=== PATIENT | male | born 1985 | race Asian ===

== ENCOUNTER 2020-11-13 16:19 | Emergency (ER) | payer MEDICAID, OTHER ==
[2020-11-13 17:11] LABS: BASOPHILS # (AUTO) 0.1 10^3/uL (0.0-0.1); BASOPHILS % (AUTO) 0.5 %; EOSINOPHILS # (AUTO) 0.1 10^3/uL (0.0-0.7); EOSINOPHILS % (AUTO) 0.5 %; HCT - HEMATOCRIT 48.1 % (42.0-52.0); HGB - HEMOGLOBIN 16.7 g/dL (14.0-18.0); LYMPHOCYTES # (AUTO) 1.1 10^3/uL (1.5-3.5); LYMPHOCYTES % (AUTO) 7.5 %; MEAN CORPUSCULAR HEMOGLOBIN 32.3 pg (27.0-31.0); MEAN CORPUSCULAR HGB CONC 34.7 g/dL (32.0-36.0); MEAN PLATELET VOLUME 10.4 fL (7.4-11.4); MONOCYTES # (AUTO) 0.9 10^3/uL (0.0-1.0); MONOCYTES % (AUTO) 6.1 %; NEUTROPHILS # (AUTO) 12.8 10^3/uL (1.5-6.6); PLT - PLATELET COUNT 250 10^3/uL (130-450); RED BLOOD COUNT 5.17 10^6/uL (4.70-6.10); RED CELL DISTRIBUTION WIDTH 12.1 % (12.0-15.0)
[2020-11-13 17:29] LABS: ACETAMINOPHEN < 10 ug/mL (10-30); ALBUMIN 4.7 g/dL (3.2-5.5); ALBUMIN/GLOBULIN RATIO 1.1 (1.0-2.2); ALKALINE PHOSPHATASE 75 IU/L (42-121); ALT ALANINE AMINOTRANSFERASE 25 IU/L (10-60); AST ASPARTATE AMINOTRANSFERASE 25 IU/L (10-42); BILIRUBIN,TOTAL 0.5 mg/dL (0.2-1.0); BUN - BLOOD UREA NITROGEN 10 mg/dL (6-20); CALCIUM 9.9 mg/dL (8.5-10.3); CARBON DIOXIDE - CO2 24 mmol/L (21-32); CHLORIDE 98 mmol/L (101-111); ETOH - ETHANOL < 5.0 mg/dL; GFR - MDRD 85 (>89); GLUCOSE 132 mg/dL (70-100); LIPASE 24 U/L (22-51); POTASSIUM 3.7 mmol/L (3.5-5.0); SALICYLATE < 6.0 mg/dL; SODIUM 136 mmol/L (135-145); TOTAL PROTEIN 8.8 g/dL (6.7-8.2)
--- NOTE | 2020-11-13 19:43 | ED Physician Documentation ---
PD HPI MHE - Stated complaint Stated Complaint: MHE - Chief complaint Chief Complaint: MHE - History obtained from History obtained from: Patient - History of Present Illness Primary symptom: Depression, Anxiety Timing - onset: How many days ago (4) Contributing factors: Substance abuse - ETOH, Other (pet was put down 4 daysa ago) Similar symptoms before: Has not had sx before Recently seen: Not recently seen - Additional information Additional information: 35-year-old male with history of alcohol abuse has had a recent tragic event where his materials buyer animal had to be put down. This happened about 4 days ago and the patient was emotionally upset by this and he had been doing some drinking. He indicates that he had 2 beers today otherwise has had none and he was concerned when he tried to check his blood pressure and it was markedly elevated as well as his pulse. He feels anxious and irritable. When his mother found his blood pressure this high she insisted to come to the emergency department. Review of Systems Constitutional: denies: Fever Eyes: denies: Decreased vision Ears: denies: Ear pain Nose: denies: Congestion Throat: denies: Sore throat Cardiac: denies: Chest pain / pressure, Palpitations Respiratory: denies: Dyspnea, Cough GI: denies: Abdominal Pain : denies: Dysuria, Frequency Skin: denies: Rash Musculoskeletal: denies: Neck pain, Back pain, Extremity pain Neurologic: denies: Generalized weakness, Focal weakness, Numbness, Difficulty speaking, Headache, Head injury Psychiatric: reports: Depressed, Anxiety, Insomnia PD PAST MEDICAL HISTORY - Past Medical History Past Medical History: Yes Psych: Anxiety, Panic attacks - Past Surgical History Past Surgical History: Yes HEENT: Tonsil/Adenoidectomy - Present Medications Home Medications: Ambulatory Orders Medication Instructions Recorded Confirmed LORazepam [Ativan] 1 - 2 mg PO Q6HR PRN #20 tablet 11/13/20 - Allergies Allergies/Adverse Reactions: Allergies Allergy/AdvReac Type Severity Reaction Status Date / Time amoxicillin Allergy Hives Verified 11/13/20 16:33 - Social History Does the pt smoke?: Yes Smoking Status: Current every day smoker Does the pt drink ETOH?: Yes Does the pt have substance abuse?: No - Immunizations Immunizations are current?: No Immunizations: TDAP >10years/unknown - POLST Patient has POLST: No PD ED PE NORMAL - Vitals Vital signs reviewed: Yes (tachy and hypertensive marked. ) - General General: Alert and oriented X 3, No acute distress, Well developed/nourished - HEENT HEENT: Atraumatic, PERRL, EOMI - Neck Neck: Supple, no meningeal sign, No bony TTP - Cardiac Cardiac: RRR, No murmur - Respiratory Respiratory: No respiratory distress, Clear bilaterally - Abdomen Abdomen: Soft, Non tender - Back Back: No CVA TTP, No spinal TTP - Derm Derm: Normal color, Warm and dry, No rash - Extremities Extremities: No deformity, No edema - Neuro Neuro: Alert and oriented X 3, apn 2-12 intact, No motor deficit, No sensory deficit, Normal speech Eye Opening: Spontaneous Motor: Obeys Commands Verbal: Oriented GCS Score: 15 - Psych Psych: Normal mood, Normal affect Results - Vitals Vitals: Vital Signs - 24 hr 11/13/20 11/13/20 16:29 19:59 Temperature 36.0 C L 36.5 C Heart Rate 114 H 110 H Respiratory 20 18 Rate Blood Pressure 193/121 H 155/100 H O2 Saturation 99 97 Oxygen O2 Source Room air - Labs Labs: Laboratory Tests 11/13/20 11/13/20 11/13/20 17:01 17:01 17:01 WBC 15.0 H RBC 5.17 Hgb 16.7 Hct 48.1 MCV 93.0 MCH 32.3 H MCHC 34.7 RDW 12.1 Plt Count 250 MPV 10.4 Neut # (Auto) 12.8 H Lymph # (Auto) 1.1 L [place] # (Auto) 0.9 Eos # (Auto) 0.1 Baso # (Auto) 0.1 Absolute Nucleated RBC 0.00 Nucleated RBC % 0.0 Sodium 136 Potassium 3.7 Chloride 98 L Carbon Dioxide 24 Anion Gap 14.0 H BUN 10 Creatinine 1.0 Estimated GFR (MDRD) 85 L Glucose 132 H Calcium 9.9 Total Bilirubin 0.5 AST 25 ALT 25 Alkaline Phosphatase 75 Total Protein 8.8 H Albumin 4.7 Globulin 4.1 Albumin/Globulin Ratio 1.1 Lipase 24 TSH 2.11 Salicylates < 6.0 Acetaminophen < 10 L Ethyl Alcohol < 5.0 PD MEDICAL DECISION MAKING - ED course Complexity details: reviewed old records, reviewed results, re-evaluated patient, considered differential, d/w patient ED course: Previously well 35-year-old male with history of alcohol abuse has been grieving over the loss of a materials buyer animal and this seems to have hit him pretty hard. He is quite emotional here in the emergency department he does not feel suicidal or homicidal but he is having some difficulty with feeling irritated and having an elevated blood pressure and pulse. This is likely due to alcohol withdrawal and the patient is offered Ativan. Departure - Departure Disposition: 01 Home, Self Care Clinical Impression: Grieving Alcohol withdrawal syndrome Qualifiers: Complication of substance-induced condition: uncomplicated Qualified Code(s): F10.230 - Alcohol dependence with withdrawal, uncomplicated Condition: Stable Instructions: ED Withdrawal Alcohol, ED Stress React Follow-Up: [facility] [Provider Group] Prescriptions: LORazepam [Ativan] 1 - 2 mg PO Q6HR PRN #20 tablet PRN Reason: withdrawal symtoms Comments: Today it appears your symptoms of elevated blood pressure and rapid heart rate are related to alcohol withdrawal. The medication we have provided the Ativan should help with these symptoms. They will also help with symptoms related to your grieving. That should be easier for you to sleep. You may need more Ativ an even this evening. Discharge Date/Time: 11/13/20 20:12
[2020-11-13 20:00] VITALS: BP 155/100
[2020-11-13] MEDS ORDERED: LORazepam 1 MG TABLET PO STA (20:03)
== END 2020-11-13 20:12 | disposition home or self-care (01) ==
LOC: ED 16:19
DX: F43.21 Adjustment disorder with depressed mood (principal); F10.230 Alcohol dependence with withdrawal, uncomplicated; F17.200 Nicotine dependence, unspecified, uncomplicated
CPT/HCPCS: 36415; 80053; 80307; 80320; 80329; 83690; 84443; 85025; 99283; J8499

== ENCOUNTER 2021-02-27 14:44 | Emergency (ER) | payer MEDICAID ==
[2021-02-27 14:59] VITALS: BP 173/121
--- NOTE | 2021-02-27 15:29 | ED Physician Documentation ---
History of Present Illness - Stated complaint Stated Complaint: ALCOHOL WITHDRAWLS - Chief complaint Chief Complaint: MHE - History obtained from History obtained from: Patient - Additonal information Additional information: 35-year-old gentleman with would like help with alcohol withdrawal. He was seen here in October for similar, got some lorazepam was actually sober for about 2 months. Started up with accelerating use and now would like to quit again and is worried about withdrawal symptoms. No SI or HI Review of Systems Constitutional: reports: Sweats Ears: reports: Reviewed and negative Nose: reports: Reviewed and negative Cardiac: reports: Reviewed and negative PD PAST MEDICAL HISTORY - Past Medical History Psych: Anxiety, Panic attacks - Past Surgical History Past Surgical History: Yes HEENT: Tonsil/Adenoidectomy - Present Medications Home Medications: Ambulatory Orders Medication Instructions Recorded Confirmed LORazepam [Ativan] 1 - 2 mg PO Q6HR PRN #20 tablet 11/13/20 LORazepam [Ativan] 1 mg PO TID PRN #12 tablet 02/27/21 - Allergies Allergies/Adverse Reactions: Allergies Allergy/AdvReac Type Severity Reaction Status Date / Time amoxicillin Allergy Hives Verified 02/27/21 14:59 - Social History Does the pt smoke?: Yes Smoking Status: Current every day smoker Does the pt drink ETOH?: Yes Does the pt have substance abuse?: No - Immunizations Immunizations are current?: No Immunizations: TDAP >10years/unknown - POLST Patient has POLST: No PD ED PE NORMAL - Vitals Vital signs reviewed: Yes - General General: Alert and oriented X 3, No acute distress - HEENT HEENT: PERRL, EOMI - Neck Neck: Supple, no meningeal sign, No bony TTP - Neuro Neuro: Alert and oriented X 3, Normal speech - Psych Psych: Normal mood, Normal affect Results - Vitals Vitals: Vital Signs - 24 hr 02/27/21 14:52 Temperature 36.9 C Heart Rate 101 H Respiratory 15 Rate Blood Pressure 173/121 H O2 Saturation 98 Oxygen O2 Source Room air PD MEDICAL DECISION MAKING - ED course ED course: Declined to talk to the 7th grade social studies teacher and did not want to entertain inpatient detox. Departure - Departure Disposition: 01 Home, Self Care Clinical Impression: Alcohol withdrawal syndrome Qualifiers: Complication of substance-induced condition: uncomplicated Qualified Code(s): F10.230 - Alcohol dependence with withdrawal, uncomplicated Condition: Good Record reviewed to determine appropriate education?: Yes Instructions: ED Withdrawal Alcohol Prescriptions: LORazepam [Ativan] 1 mg PO TID PRN #12 tablet PRN Reason: Anxiety Comments: Prescription sent electronically to [facility]. Return for new or worsening symptoms. Follow-up with your doctor for further evaluation and treatment.
== END 2021-02-27 16:29 | disposition home or self-care (01) ==
LOC: ED 14:44
DX: F10.230 Alcohol dependence with withdrawal, uncomplicated (principal); F17.200 Nicotine dependence, unspecified, uncomplicated
CPT/HCPCS: 99282; 99283

== ENCOUNTER 2021-05-15 14:47 | Emergency (ER) | payer MEDICAID ==
[2021-05-15 14:56] VITALS: BP 154/102
--- NOTE | 2021-05-15 15:05 | ED Physician Documentation ---
History of Present Illness - Stated complaint Stated Complaint: ALC WITHDRAWL - Chief complaint Chief Complaint: General - History obtained from History obtained from: Patient - Additonal information Additional information: Presents to the emergency department today requesting prescription for impending alcohol withdrawal. He has had luck with lorazepam in the past. He denies hallucinations or seizures. Review of Systems Constitutional: denies: Fever, Chills Eyes: reports: Reviewed and negative Ears: reports: Reviewed and negative Nose: reports: Reviewed and negative Throat: reports: Reviewed and negative PD PAST MEDICAL HISTORY - Past Medical History Cardiovascular: None Respiratory: None Neuro: None Endocrine/Autoimmune: Type 2 diabetes GI: GERD, Esophageal varices : None HEENT: None Psych: Anxiety, Panic attacks Musculoskeletal: None Derm: None - Past Surgical History Past Surgical History: Yes HEENT: Tonsil/Adenoidectomy - Present Medications Home Medications: Ambulatory Orders Medication Instructions Recorded Confirmed LORazepam [Ativan] 1 mg PO TID PRN #12 tablet 05/15/21 - Allergies Allergies/Adverse Reactions: Allergies Allergy/AdvReac Type Severity Reaction Status Date / Time amoxicillin Allergy Hives Verified 05/15/21 14:52 - Social History Does the pt smoke?: Yes Smoking Status: Current every day smoker Does the pt drink ETOH?: Yes Does the pt have substance abuse?: No - Immunizations Immunizations are current?: No Immunizations: TDAP >10years/unknown - POLST Patient has POLST: No PD ED PE NORMAL - Vitals Vital signs reviewed: Yes - General General: Alert and oriented X 3, No acute distress - HEENT HEENT: PERRL (Anicteric) - Derm Derm: Normal color, Warm and dry - Neuro Neuro: Alert and oriented X 3, Normal speech - Psych Psych: Normal mood, Normal affect Results - Vitals Vitals: Vital Signs - 24 hr 05/15/21 14:52 Temperature 36.6 C Heart Rate 128 H Respiratory 20 Rate Blood Pressure 154/102 H O2 Saturation 97 Oxygen O2 Source Room air PD MEDICAL DECISION MAKING - ED course ED course: He declined to talk to the child protective services social worker here, he already has resources to help him and plans to enroll in a program for naltrexone. Departure - Departure Disposition: 01 Home, Self Care Clinical Impression: Alcohol withdrawal syndrome Qualifiers: Complication of substance-induced condition: uncomplicated Qualified Code(s): F10.230 - Alcohol dependence with withdrawal, uncomplicated Condition: Good Record reviewed to determine appropriate education?: Yes Instructions: ED Withdrawal Alcohol Prescriptions: LORazepam [Ativan] 1 mg PO TID PRN #12 tablet PRN Reason: Anxiety Comments: Prescription sent electronically [facility] in [place]. Return for new or worsening symptoms. Use the resources you have to seek more definitive management for alcohol withdrawal. Do not drink alcohol while taking lorazepam. I recommend taking lorazepam three times a day for 2 days, then twice a day for 2 days, and then at night for two more days to help you sleep.
== END 2021-05-15 15:08 | disposition home or self-care (01) ==
LOC: ED 14:47
DX: F10.230 Alcohol dependence with withdrawal, uncomplicated (principal); F17.200 Nicotine dependence, unspecified, uncomplicated
CPT/HCPCS: 99282; 99283

== ENCOUNTER 2023-05-23 15:18 | Emergency (ER) | payer MEDICAID, OTHER ==
[2023-05-23 15:54] VITALS: BP 155/95; O2SAT 96
[2023-05-23 16:06] LABS: BASOPHILS # (AUTO) 0.1 10^3/uL (0.0-0.1); BASOPHILS % (AUTO) 0.5 %; EOSINOPHILS % (AUTO) 0.2 %; HCT - HEMATOCRIT 46.9 % (42.0-52.0); HGB - HEMOGLOBIN 16.5 g/dL (14.0-18.0); LYMPHOCYTES # (AUTO) 0.9 10^3/uL (1.5-3.5); LYMPHOCYTES % (AUTO) 7.6 %; MEAN CORPUSCULAR HEMOGLOBIN 33.1 pg (27.0-31.0); MEAN CORPUSCULAR HGB CONC 35.2 g/dL (32.0-36.0); MEAN CORPUSCULAR VOLUME 94.2 fL (80.0-94.0); MEAN PLATELET VOLUME 9.5 fL (7.4-11.4); MONOCYTES % (AUTO) 8.2 %; NEUTROPHILS # (AUTO) 9.9 10^3/uL (1.5-6.6); NEUTROPHILS % (AUTO) 83.2 %; PLT - PLATELET COUNT 211 10^3/uL (130-450); RED BLOOD COUNT 4.98 10^6/uL (4.70-6.10); RED CELL DISTRIBUTION WIDTH 13.1 % (12.0-15.0); WHITE BLOOD COUNT 11.8 x10^3/uL (4.8-10.8)
[2023-05-23 16:22] LABS: ALBUMIN 5.4 g/dL (3.2-5.5); ALBUMIN/GLOBULIN RATIO 1.8 (1.0-2.2); ALKALINE PHOSPHATASE 69 IU/L (42-121); ALT ALANINE AMINOTRANSFERASE 39 IU/L (10-60); AST ASPARTATE AMINOTRANSFERASE 44 IU/L (10-42); BILIRUBIN,TOTAL 0.8 mg/dL (0.2-1.0); BUN - BLOOD UREA NITROGEN 9 mg/dL (6-20); CALCIUM 10.6 mg/dL (8.5-10.3); CARBON DIOXIDE - CO2 27 mmol/L (21-32); CHLORIDE 95 mmol/L (101-111); CK- CREATINE KINASE 322 IU/L (30-223); CREATININE 0.7 mg/dL (0.6-1.3); ETOH - ETHANOL 66.8 mg/dL; GFR - MDRD 126 (>89); GLUCOSE 114 mg/dL (74-104); LIPASE 34 U/L (11-82); MAGNESIUM 1.8 mg/dL (1.7-2.3); POTASSIUM 4.1 mmol/L (3.5-4.5); SODIUM 137 mmol/L (135-145); TOTAL PROTEIN 8.4 g/dL (6.4-8.9)
[2023-05-23 16:35] LABS: THYROID STIMULATING HORMONE 1.68 uIU/mL (0.34-5.60)
[2023-05-23 17:16] LABS: ACETAMINOPHEN < 0 ug/mL (10-30); SALICYLATE < 1.5 mg/dL
[2023-05-23] MEDS ORDERED: chlordiazePOXIDE 25 MG CAPSULE PO STA (18:37)
--- NOTE | 2023-05-23 19:01 | ED Physician Documentation ---
History of Present Illness - Stated complaint Stated Complaint: WITHDRAWAL - Chief complaint Chief Complaint: General - History obtained from History obtained from: Patient - History of Present Illness Timing: Today Pain level max: 0 Pain level now: 0 - Additonal information Additional information: 37-year-old male with a longstanding history of alcoholism presents to the emergency department complaining of feeling like he is having alcohol withdrawal symptoms. He states he drinks approximately 8-12 beers per day. Has not had any seizures in the past. He lives at home with his parents. He is not suicidal or homicidal. He states that he has hydroxyzine for sleep at home but has not taken this. He states that he is feeling shaky and anxious. He does not want to go to detox or rehab today. Review of Systems Constitutional: denies: Fever, Chills Throat: denies: Sore throat Cardiac: denies: Chest pain / pressure, Palpitations Respiratory: denies: Cough GI: denies: Abdominal Pain, Nausea, Vomiting, Diarrhea, Hematemesis, Bloody / black stool : denies: Dysuria, Frequency, Hesitancy Skin: denies: Rash Musculoskeletal: denies: Neck pain, Back pain Neurologic: denies: Focal weakness, Numbness, Headache, Head injury, LOC Psychiatric: reports: Anxiety. denies: Depressed, Suicidal, Homicidal, Hallucinations, Delusions PD PAST MEDICAL HISTORY - Past Medical History Past Medical History: Yes Cardiovascular: None Respiratory: None Neuro: None Endocrine/Autoimmune: Type 2 diabetes GI: GERD : None HEENT: None Psych: Depression, Anxiety, Panic attacks Musculoskeletal: None Derm: None - Past Surgical History Past Surgical History: Yes HEENT: Tonsil/Adenoidectomy - Present Medications Home Medications: Ambulatory Orders Medication Instructions Recorded Confirmed chlordiazePOXIDE [Librium] 25 - 50 mg PO Q6H #14 cap 05/23/23 - Allergies Allergies/Adverse Reactions: Allergies Allergy/AdvReac Type Severity Reaction Status Date / Time amoxicillin Allergy Hives Verified 05/23/23 15:42 - Social History Does the pt smoke?: Yes Smoking Status: Current every day smoker Does the pt drink ETOH?: Yes ETOH Use: Beer Does the pt have substance abuse?: No - Immunizations Immunizations are current?: No Immunizations: TDAP >10years/unknown - POLST Patient has POLST: No PD ED PE NORMAL - Vitals Vital signs reviewed: Yes - General General: Alert and oriented X 3, No acute distress - HEENT HEENT: PERRL, Moist mucous membranes - Neck Neck: Supple, no meningeal sign - Cardiac Cardiac: RRR, Strong equal pulses - Respiratory Respiratory: No respiratory distress, Clear bilaterally - Abdomen Abdomen: Soft, Non tender, Non distended - Derm Derm: Warm and dry - Extremities Extremities: No edema, No calf tenderness / cord - Neuro Neuro: Alert and oriented X 3 - Psych Psych: Normal mood, Normal affect Results - Vitals Vitals: Vital Signs - 24 hr 05/23/23 15:42 Temperature 36 C L Heart Rate 101 H Respiratory 18 Rate Blood Pressure 155/95 H O2 Saturation 96 Oxygen O2 Source Room air - Labs Labs: Laboratory Tests 05/23/23 05/23/23 16:01 16:01 WBC 11.8 H RBC 4.98 Hgb 16.5 Hct 46.9 MCV 94.2 H MCH 33.1 H MCHC 35.2 RDW 13.1 Plt Count 211 MPV 9.5 Neut # (Auto) 9.9 H Lymph # (Auto) 0.9 L [place] # (Auto) 1.0 Eos # (Auto) 0.0 Baso # (Auto) 0.1 Absolute Nucleated RBC 0.00 Nucleated RBC % 0.0 Sodium 137 Potassium 4.1 Chloride 95 L Carbon Dioxide 27 Anion Gap 15.0 H BUN 9 Creatinine 0.7 Estimated GFR (MDRD) 126 Glucose 114 H Calcium 10.6 H Magnesium 1.8 Total Bilirubin 0.8 AST 44 H ALT 39 Alkaline Phosphatase 69 Total Creatine Kinase 322 H Total Protein 8.4 Albumin 5.4 Globulin 3.0 Albumin/Globulin Ratio 1.8 Lipase 34 TSH 1.68 Salicylates < 1.5 Acetaminophen < 0 L Ethyl Alcohol 66.8 PD Medical Decision Making - ED course Complexity details: reviewed results, re-evaluated patient, considered differential, d/w patient ED course: No significant laboratory abnormalities. Patient is well-appearing, nontoxic. Alcohol level is minimally elevated. He was given a dose of Librium here. Patient again states he does not want to go to detox or rehab today. He states that he wants to go home. He was given information for [facility] and will contact them tomorrow if he changes his mind about detox. He is not suicidal or homicidal. He is not in severe withdrawal. Patient counseled regarding signs and symptoms for which I believe and urgent re-evaluation would be necessary. Patient with good understanding of and agreement to plan and is comfortable going home at this time This document was made in part using voice recognition software. While efforts are made to proofread this document, sound alike and grammatical errors may occur. Departure - Departure Disposition: 01 Home, Self Care Clinical Impression: Alcohol abuse Condition: Good Instructions: ED Withdrawal Alcohol, ED Alcohol Abuse Follow-Up: your,doctor in 1 week [Other] Prescriptions: chlordiazePOXIDE [Librium] 25 - 50 mg PO Q6H #14 cap Comments: [facility] did not want to go there tonight. I have sent a prescription to the [facility] pharmacy for you. You can use these medications at home to help with your withdrawal symptoms. Please return if you worsen. You should have your laboratory testing including a metabolic panel and liver test rechecked with your doctor in 1 week. Contact: [facility] [address] [place] [phone] Fax: Forms: PCP List Discharge Date/Time: 05/23/23 19:21
--- NOTE | 2023-05-24 11:00 | ED Physician Documentation ---
ED Addendum - Addendum Addendum: 05/24/23 10:59Received a call from the [facility] pharmacy that they do not stock Librium. They were unable to transmit it to another pharmacy because of controlled substance. The patient request that it be sent to [facility]. I did cancel the prescription at the [facility] pharmacy and retransmitted it to [facility].
== END 2023-05-23 19:21 | disposition home or self-care (01) ==
LOC: ED 15:18
DX: F10.10 Alcohol abuse, uncomplicated (principal); Y90.3 Blood alcohol level of 60-79 mg/100 ml; F17.200 Nicotine dependence, unspecified, uncomplicated
CPT/HCPCS: 36415; 80053; 80307; 80320; 80329; 82550; 83690; 83735; 84443; 85025; 99283; A9270